=== PATIENT | male | born 1980 | race Caucasian/White ===

== ENCOUNTER 2018-10-20 17:56 | Emergency (ER) | payer OTHER ==
[2018-10-20 18:36] VITALS: TEMP 98.1
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
[2018-10-20 19:26] LABS: Basophils # (A) 0.1 k/uL (0-0.2); Basophils % (A) 0 %; Eosinophils # (A) 0.1 k/uL (0-0.7); Eosinophils % (A) 1 %; HCT 49.8 % (39.0-53.0); HGB 16.8 gm/dL (13.0-17.5); Lymphocytes # (A) 1.3 k/uL (1.0-4.8); Lymphocytes % (A) 12 %; MCH 30.6 pg (25.0-35.0); MCHC 33.7 g/dL (31.0-37.0); MCV 90.7 fL (80.0-100.0); Mean Platelet Volume 6.9; Monocytes # (A) 0.7 k/uL (0-1.0); Monocytes % (A) 6 %; Neutrophils % (A) 80 %; Platelet Count 344 k/uL (150-450); RBC 5.49 m/uL (4.30-5.90); RDW 12.9 % (11.5-15.5); WBC 11.3 k/uL (3.8-10.6)
[2018-10-20 19:48] LABS: ALT 29 U/L (21-72); AST 32 U/L (17-59); Albumin 4.6 g/dL (3.5-5.0); Alkaline Phosphatase 80 U/L (38-126); Amylase 69 U/L (30-110); Anion Gap 9 mmol/L; Blood Urea Nitrogen 15 mg/dL (9-20); Carbon Dioxide 22 mmol/L (22-30); Chloride 110 mmol/L (98-107); Glucose 103 mg/dL (74-99); Lipase 110 U/L (23-300); Potassium 4.7 mmol/L (3.5-5.1); Sodium 141 mmol/L (137-145); Total Bilirubin 0.6 mg/dL (0.2-1.3); Total Protein 7.6 g/dL (6.3-8.2)
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
[2018-10-20] MEDS ORDERED: MAGNESIUM CITRATE 296 ML BOTTLE PO ONE (20:06)
[2018-10-20 20:47] VITALS: BP 149/98; PULSE 86; RESP 18
== END 2018-10-20 20:32 | disposition home or self-care (01) ==
LOC: EC 17:56
DX: R10.13 Epigastric pain (principal); K59.00 Constipation, unspecified; R06.03 Acute respiratory distress; Z87.891 Personal history of nicotine dependence; Z90.81 Acquired absence of spleen; Z98.890 Other specified postprocedural states; W22.8XXA Striking against or struck by other objects, initial encounter; Y92.69 Other specified industrial and construction area as the place of occurrence of the external cause; Y99.0 Civilian activity done for income or pay
CPT/HCPCS: 36415; 80053; 82150; 83690; 85025; 74177; 99284; Q9967

== ENCOUNTER → 2019-07-05 | Outpatient (CLI) | payer OTHER ==
--- NOTE | 2019-07-05 15:56 | XR ---
EXAMINATION TYPE: XR wrist complete LT DATE OF EXAM: 07/05/2019 COMPARISON: None HISTORY: Onset of pain one week prior TECHNIQUE: 4 view left wrist FINDINGS: No acute fractures or dislocations are evident. Old open reduction internal fixation repair of the distal forearm is evident. Soft tissues have mild prominence over the dorsum of the wrist are otherwise unremarkable. There is pain at the anatomic snuff box, nuclear medicine bone scan could be performed for additional evaluation. Follow-up exams can be performed 7-10 days from acute trauma for continued pain. IMPRESSION: 1. No acute osseous abnormality.
--- NOTE | 2019-07-05 16:04 | XR ---
EXAMINATION TYPE: XR hand complete LT DATE OF EXAM: 07/05/2019 COMPARISON: None HISTORY: Pain TECHNIQUE: Three-view left hand FINDINGS: No acute fracture or dislocation is evident. Joint spaces are preserved. Soft tissues over the hand appear normal. IMPRESSION: 1. Normal three-view left hand
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
== END | disposition home or self-care (01) ==
LOC: RAD 15:02
PROVIDERS: ATTEND Family Medicine
DX: M79.632 Pain in left forearm (principal); M79.622 Pain in left upper arm; M25.532 Pain in left wrist; M79.642 Pain in left hand; R22.32 Localized swelling, mass and lump, left upper limb

== ENCOUNTER → 2019-07-06 | Outpatient (CLI) | payer OTHER ==
[2019-07-06 10:04] LABS: Basophils # (A) 0.1 k/uL (0-0.2); Basophils % (A) 1 %; Eosinophils # (A) 0.2 k/uL (0-0.7); Eosinophils % (A) 2 %; HCT 50.9 % (39.0-53.0); Lymphocytes # (A) 2.2 k/uL (1.0-4.8); Lymphocytes % (A) 24 %; MCH 31.4 pg (25.0-35.0); MCHC 33.3 g/dL (31.0-37.0); MCV 94.4 fL (80.0-100.0); Mean Platelet Volume 7.7; Monocytes # (A) 0.6 k/uL (0-1.0); Monocytes % (A) 7 %; Neutrophils # (A) 5.9 k/uL (1.3-7.7); Neutrophils % (A) 65 %; Platelet Count 391 k/uL (150-450); RBC 5.39 m/uL (4.30-5.90); RDW 12.7 % (11.5-15.5); WBC 9.1 k/uL (3.8-10.6)
[2019-07-06 17:07] LABS: ALT 18 U/L (10-49); AST 20 U/L (14-35); African American GFR (CKD) 107.9 (60.0-200.0); Albumin/Globulin Ratio 2.21 (1.60-3.17); Alkaline Phosphatase 77 U/L (41-126); Bilirubin, Conjugated <0.20 mg/dL (0.20-0.40); Calcium 9.2 mg/dL (8.7-10.3); Carbon Dioxide 26.4 mmol/L (21.6-31.8); Chloride 107 mmol/L (96-109); Chol/HDL Ratio 4.26; Cholesterol 162 mg/dL (0-200); Globulin 1.9 g/dL (1.6-3.3); Glucose 101 mg/dL (70-110); LDL Cholesterol,Calculated 93.8 mg/dL (0.0-131.0); Non-African American GFR(CKD) 93.1 (60.0-200.0); Potassium 4.7 mmol/L (3.5-5.5); Sodium 139 mmol/L (135-145); Total Bilirubin 0.3 mg/dL (0.3-1.2); Total Protein 6.1 g/dL (6.2-8.2)
== END | disposition home or self-care (01) ==
LOC: LABWHC1 09:13
PROVIDERS: ATTEND Nurse Practitioner Family
DX: Z00.00 Encounter for general adult medical examination without abnormal findings (principal)
CPT/HCPCS: 36415; 80053; 80061; 82248; 84439; 84443; 85025

== ENCOUNTER 2021-07-27 12:54 | Emergency (ER) | payer OTHER ==
[2021-07-27 12:58] VITALS: RESP 18
[2021-07-27] MEDS ORDERED: DIAZEPAM 5 MG/ML 2 ML INJ IVP STA (13:12)
[2021-07-27] MEDS ORDERED: MECLIZINE 25 MG TAB PO STA (13:12)
[2021-07-27] MEDS ORDERED: SODIUM CHLORIDE 0.9% 500 ML 500 ML IV STA (13:12)
[2021-07-27 13:28] LABS: Basophils # (A) 0.1 k/uL (0-0.2); Basophils % (A) 1 %; Eosinophils # (A) 0.2 k/uL (0-0.7); Eosinophils % (A) 2 %; HCT 53.1 % (39.0-53.0); HGB 17.8 gm/dL (13.0-17.5); Lymphocytes % (A) 21 %; MCHC 33.4 g/dL (31.0-37.0); MCV 92.8 fL (80.0-100.0); Mean Platelet Volume 7.6; Monocytes # (A) 0.6 k/uL (0-1.0); Monocytes % (A) 7 %; Neutrophils # (A) 6.5 k/uL (1.3-7.7); Neutrophils % (A) 67 %; Platelet Count 378 k/uL (150-450); RBC 5.73 m/uL (4.30-5.90); RDW 13.6 % (11.5-15.5); WBC 9.6 k/uL (3.8-10.6)
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
[2021-07-27 13:42] LABS: ALT 24 U/L (4-49); African American GFR (CKD) >90 (>60 ml/min/1.73 sqM); Albumin 4.1 g/dL (3.5-5.0); Anion Gap 6 mmol/L; Blood Urea Nitrogen 18 mg/dL (9-20); Calcium 9.4 mg/dL (8.4-10.2); Carbon Dioxide 22 mmol/L (22-30); Chloride 109 mmol/L (98-107); Glucose 121 mg/dL (74-99); INR 0.9 (<1.2); Non-African American GFR(CKD) >90 (>60 ml/min/1.73 sqM); Partial Thromboplastin Time 23.9 sec (22.0-30.0); Prothrombin Time 9.6 sec (9.0-12.0); Sodium 137 mmol/L (137-145); Total Bilirubin 0.9 mg/dL (0.2-1.3); Total Protein 7.4 g/dL (6.3-8.2)
[2021-07-27 13:47] LABS: AST 34 U/L (17-59); Alkaline Phosphatase 56 U/L (38-126); Potassium 4.6 mmol/L (3.5-5.1)
--- NOTE | 2021-07-27 13:49 | XR ---
EXAMINATION TYPE: XR chest 2V DATE OF EXAM: 07/27/2021 COMPARISON: NONE HISTORY: Chest pain. TECHNIQUE: Frontal and lateral views of the chest are obtained. FINDINGS: There is minimal left basilar linear scarring and/or atelectasis. Right lung is clear. The cardiac silhouette size is within normal limits. The osseous structures are intact. IMPRESSION: Patchy left basilar atelectasis and/or scarring.
--- NOTE | 2021-07-27 14:02 | CT ---
EXAMINATION TYPE: CT brain wo con DATE OF EXAM: 07/27/2021 COMPARISON: None. HISTORY: Severe dizziness CT DLP: 1008.3 mGycm. Automated Exposure Control for Dose Reduction was Utilized. TECHNIQUE: CT scan of the head is performed without contrast. FINDINGS: There is no acute intracranial hemorrhage, mass effect, or midline shift identified. The ventricles and sulci are within normal limits in size. Rosa-white matter differentiation is maintai zuly. The globes are intact and the visualized sinuses are clear. No suspicious opacification of masto id air cells bilaterally. IMPRESSION: Unremarkable study.
[2021-07-27 16:20] VITALS: BP 132/77; PULSE 68; TEMP 98.7
== END 2021-07-27 16:18 | disposition home or self-care (01) ==
LOC: EC 12:54
DX: R42 Dizziness and giddiness (principal); F17.200 Nicotine dependence, unspecified, uncomplicated; F12.90 Cannabis use, unspecified, uncomplicated
CPT/HCPCS: 99284; 96374; 96361; 36415; 93005; 80053; 83735; 84484; 85025; 85610; 85730; 71046; 70450; J3360

== ENCOUNTER 2022-05-17 09:47 | Emergency (ER) | payer BC ==
[2022-05-17 09:51] VITALS: RESP 16
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
--- NOTE | 2022-05-17 10:28 | XR ---
EXAMINATION TYPE: XR chest 2V DATE OF EXAM: 05/17/2022 COMPARISON: 07/27/2021 HISTORY: Cough and chills TECHNIQUE: Frontal and lateral views of the chest are obtained. FINDINGS: There is no focal air space opacity, pleural effusion, or pneumothorax seen. The cardiac silhouette size is within normal limits. The osseous structures are intact. IMPRESSION: No acute cardiopulmonary process.
[2022-05-17 11:31] VITALS: BP 138/78; PULSE 78; TEMP 98
== END 2022-05-17 11:29 | disposition home or self-care (01) ==
LOC: EC 09:47
DX: J06.9 Acute upper respiratory infection, unspecified (principal); F12.90 Cannabis use, unspecified, uncomplicated; F17.210 Nicotine dependence, cigarettes, uncomplicated; Z20.822 Contact with and (suspected) exposure to COVID-19
CPT/HCPCS: 71046; 87636; 99283

== ENCOUNTER 2022-07-20 14:33 | Emergency (ER) | payer BC ==
[2022-07-20 14:43] VITALS: TEMP 97.7
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
[2022-07-20] MEDS ORDERED: KETOROLAC 15 MG/ML 1 ML VIAL IVP STA (16:00)
[2022-07-20] MEDS ORDERED: SODIUM CHLORIDE 0.9% 1,000 ML IV STA (16:00)
[2022-07-20] MEDS ORDERED: ONDANSETRON 4 MG/2 ML VIAL IVP STA (16:00)
[2022-07-20] MEDS ORDERED: FAMOTIDINE 20 MG/2 ML VIAL IV STA (16:01)
[2022-07-20 16:44] LABS: ALT 25 U/L (4-49); AST 28 U/L (17-59); African American GFR (CKD) >90 (>60 ml/min/1.73 sqM); Albumin 4.3 g/dL (3.5-5.0); Alkaline Phosphatase 69 U/L (38-126); Amylase 55 U/L (30-110); Anion Gap 5 mmol/L; Blood Urea Nitrogen 19 mg/dL (9-20); Calcium 8.7 mg/dL (8.4-10.2); Carbon Dioxide 28 mmol/L (22-30); Chloride 104 mmol/L (98-107); Glucose 119 mg/dL (74-99); Lipase 98 U/L (23-300); Non-African American GFR(CKD) >90 (>60 ml/min/1.73 sqM); Sodium 137 mmol/L (137-145); Total Bilirubin 0.8 mg/dL (0.2-1.3); Total Protein 7.2 g/dL (6.3-8.2)
[2022-07-20 16:49] LABS: Basophils # (A) 0.1 k/uL (0-0.2); Basophils % (A) 0 %; Eosinophils # (A) 0.1 k/uL (0-0.7); Eosinophils % (A) 1 %; HCT 50.8 % (39.0-53.0); HGB 16.9 gm/dL (13.0-17.5); Lymphocytes # (A) 0.5 k/uL (1.0-4.8); Lymphocytes % (A) 3 %; MCH 29.7 pg (25.0-35.0); MCHC 33.2 g/dL (31.0-37.0); MCV 89.5 fL (80.0-100.0); Mean Platelet Volume 8.2; Monocytes # (A) 0.7 k/uL (0-1.0); Monocytes % (A) 3 %; Neutrophils % (A) 93 %; Platelet Count 311 k/uL (150-450); RBC 5.68 m/uL (4.30-5.90); RDW 13.3 % (11.5-15.5); WBC 21.6 k/uL (3.8-10.6)
--- NOTE | 2022-07-20 17:35 | US ---
EXAMINATION TYPE: US gallbladder DATE OF EXAM: 07/20/2022 COMPARISON: CT:10/20/18 CLINICAL HISTORY: RUQ and epigastric pain. RUQ pain since last night with n/v TECHNIQUE: Multiple sonographic images of the right upper quadrant are obtained. FINDINGS: EXAM MEASUREMENTS: Liver Length: 15.1 cm Gallbladder Wall: 0.18 cm CBD: 0.46 cm Right Kidney: 11.6 x 6.0 x 5.7 cm LAST GREASER NOTES: Pancreas: Parts visualized appear wnl Liver: wnl Gallbladder: wnl Evidence for sonographic Song's sign: No CBD: wnl Right Kidney: wnl IMPRESSION: Normal exam. No gallstones or dilated ducts.
--- NOTE | 2022-07-20 18:28 | CT ---
EXAMINATION TYPE: CT abdomen pelvis w con DATE OF EXAM: 07/20/2022 COMPARISON: 10/20/2018 HISTORY: N/V/D CT DLP: 995.6 mGycm Automated exposure control for dose reduction was used. CONTRAST: Performed with IV Contrast, patient injected with 100 mL of Isovue 300. Images obtained from the diaphragm to the floor of the pelvis with the IV contrast. Lung bases are clear. No pleural effusion. Heart size is normal. No pericardial effusion. Liver is intact. Spleen appears absent. There is no evidence of pancreatic mass. Gallbladder appears normal. The bile ducts are not dilated. The stomach is intact. There is no adrenal mass. Kidneys show satisfactory contrast opacification. No hydronephrosis. Ureter s are not dilated. No retroperitoneal adenopathy. Bladder distends smoothly. There are a few sigmoid small diverticula. No diverticulitis. No inguinal hernia. No sign of a pelvic mass. Appendix is media l and appears normal. There is no mesenteric edema. No ascites or free air. No sign of a bowel obstruction. IMPRESSION: There is some sigmoid diverticulosis. No diverticulitis. Normal appendix. No adverse change compared to old exam. There is clearing of the rectal fecal impaction compared to old exam.
[2022-07-20 18:43] LABS: Appearance,Urine Clear (Clear); Bilirubin,Urine Negative (Negative); Blood,Urine Negative (Negative); Color,Urine Light Yellow; Glucose,Urine (UA) Negative (Negative); Ketones,Urine Negative (Negative); Leukocyte Esterase,Urine Negative (Negative); Nitrite,Urine Negative (Negative); Protein,Urine Negative (Negative); Specific Gravity,Urine >1.050 (1.001-1.035); Urobilinogen,Urine <2.0 mg/dL (<2.0)
[2022-07-20] MEDS ORDERED: ACET/COD 300 MG/30 MG STARTER PACK 6 TAB BTL PO STA (18:54)
[2022-07-20] MEDS ORDERED: ONDANSETRON 4 MG ODT STARTER PACK 2 TAB BTL PO STA (18:54)
[2022-07-20 19:21] VITALS: BP 127/86; PULSE 83; RESP 20
== END 2022-07-20 19:23 | disposition home or self-care (01) ==
LOC: EC 14:33
DX: K52.9 Noninfective gastroenteritis and colitis, unspecified (principal); F17.200 Nicotine dependence, unspecified, uncomplicated; F12.90 Cannabis use, unspecified, uncomplicated; Z20.822 Contact with and (suspected) exposure to COVID-19
CPT/HCPCS: 36415; 80053; 82150; 83605; 83690; 85025; 81003; 87636; 76705; 74177; 99284; 96374; 96375 ×2; 96361 ×3; J2405; J1885; S0119; Q9967

== ENCOUNTER 2024-01-17 14:10 | Emergency (ER) | payer BC, OTHER ==
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
[2024-01-17 14:48] VITALS: RESP 18
--- NOTE | 2024-01-17 15:53 | US ---
EXAMINATION TYPE: US scrotum with doppler. Grayscale and color Doppler Duplex imaging performed of orly sams scrotum. DATE OF EXAM: 01/17/2024 COMPARISON: NONE CLINICAL INDICATION: Male, 43 years old with history of Right sided testicle pain; right testicle ceasar n for 3 weeks EXAM MEASUREMENTS: TESTICLES: Right Testicle: 4.2 x 1.8 x 3.1 cm Left Testicle: 3.9 x 1.9 x 2.8 cm EPIDIDYMIS HEAD: Right Epididymis: 0.9 cm Left Epididymis: 0.9 cm Doppler performed to assess for testicular vascularity; good bilateral color flow and waveforms are s een. There is no evidence of testicular torsion. Presence of hydroceles: yes, small fluid collection superior/medial to right testicle = 2.7cm Presence of varicoceles: prominent vascularity bilaterally, laterally *Diffuse microcalcifications noted bilaterally IMPRESSION: 1. No evidence for intratesticular mass. 2. Bilateral Testicular microlithiasis. 3. Small right hydrocele. 4. Bilateral varicoceles. 5. Appropriate arterial and venous spectral waveforms to the testes.
[2024-01-17 17:53] LABS: Appearance,Urine Clear (Clear); Bilirubin,Urine Negative (Negative); Blood,Urine Negative (Negative); Color,Urine Yellow; Glucose,Urine (UA) Negative (Negative); Ketones,Urine Negative (Negative); Leukocyte Esterase,Urine Negative (Negative); Nitrite,Urine Negative (Negative); Protein,Urine Negative (Negative); Specific Gravity,Urine 1.027 (1.001-1.035); Urobilinogen,Urine <2.0 mg/dL (<2.0)
[2024-01-17 18:47] VITALS: BP 122/68; PULSE 68; TEMP 98.1
== END 2024-01-17 18:44 | disposition home or self-care (01) ==
LOC: EC 14:10
DX: N50.811 Right testicular pain (principal); I86.1 Scrotal varices; N43.3 Hydrocele, unspecified; F17.200 Nicotine dependence, unspecified, uncomplicated
CPT/HCPCS: 76870; 81003; 87491; 87591; 93975; 99284